=== PATIENT | female | born 1985 | race Caucasian/White ===

== ENCOUNTER 2018-07-24 20:46 | Emergency (ER) | payer MEDICAID ==
[~2018-07-24] VITALS: Ht 154.9 cm; Wt 68.8 kg
[2018-07-24 20:51] VITALS: Ht 154.9 cm; Wt 68.8 kg
[2018-07-24] MEDS ORDERED: SOD CHLORIDE 0.9% 1,000 ML IV STA (23:45)
[2018-07-24] MEDS ORDERED: KETOROLAC 15 MG INJ IV STA (23:45)
[2018-07-24] MEDS ORDERED: ASPIRIN 325 MG TAB PO STA (23:45)
--- NOTE | 2018-07-25 01:15 | ERD ---
ER Documentation Chief Complaint Chief Complaint CHEST PAIN XTANISH HPI 33-year-old female who presents to the emergency room complaining of 1 day of chest pain. She describes it as sharp, pressure-like but occasionally sharp and pinpoint to the left side of her chest with occasional radiation to the left arm. Nonexertional. Mild associated shortness of breath but no pleuritic pain. The patient is a non-smoker. No current control. No family history of early cardiac disease. She denies any fevers chills cough or congestion. The patient also notes 6 months of headache that is frontal. She has had CT imaging and MRI imaging that a been negative. Mild headache today that is gradual onset frontal and bitemporal. During the patient's encounter translation services were utilized Language: Croatian Source: In person ROS All systems reviewed and are negative except as per history of present illness. Medications Home Meds Active Scripts Ibuprofen* (Motrin*) 800 Mg Tab, 800 MG PO Q6H PRN for PAIN AND OR ELEVATED TEMP, #30 TAB Prov:GNEI TSAI MD 07/25/18 Reported Medications Ibuprofen* (Ibuprofen*) 200 Mg Capsule, 800 MG PO QID PRN for PAIN, CAP 07/25/18 Allergies Allergies: Coded Allergies: No Known Allergy (Unverified , 07/25/18) PMhx/Soc Medical and Surgical Hx: pt denies Medical Hx History of Surgery: Yes (c/s x4) Hx Alcohol Use: No Hx Substance Use: No Hx Tobacco Use: No Smoking Status: Never smoker FmHx Family History: No diabetes Physical Exam Vitals Vital Signs Date Temp Pulse Resp B/P (MAP) Pulse Ox O2 O2 Flow FiO2 Time Delivery Rate 07/25/18 99.2 67 11 113/66 100 Room Air 03:51 (82) 07/25/18 99.2 94 20 128/90 100 Room Air 02:57 (103) 07/25/18 99.2 70 12 129/81 100 Room Air 02:10 (97) 07/25/18 99.2 70 12 138/84 100 Room Air 01:28 (102) 07/25/18 99.2 82 19 142/90 100 Room Air 00:54 (107) 07/25/18 Nasal 2 00:15 Cannula 07/24/18 99.2 94 18 132/101 99 20:51 (111) Physical Exam General: Well developed, well nourished, no acute distress Head: Normocephalic, atraumatic. Eyes: Pupils equally reactive, EOM intact ENT: Moist mucous membranes Neck: Supple, no lymphadenopathy Respiratory: Lungs clear bilaterally, no distress Cardiovascular: RRR, no murmurs, rubs, or gallops Abdominal: Soft, non-tender, non-distended, no peritoneal signs : Deferred MSK: No edema, no unilateral swelling, 5/5 strength Neurologic: Alert and oriented, moving all extremities, normal speech, no focal weakness, no cerebellar signs Skin: No rash Psych: Normal mood Result Diagram: 07/24/180 07/24/182349 Results 24 hrs Laboratory Tests Test 07/24/18 23:50 07/24/18 23:59 07/25/18 03:00 White Blood Count 10.0 10^3/ul Red Blood Count 4.06 10^6/ul Hemoglobin 12.7 g/dl Hematocrit 37.7 % Mean Corpuscular Volume 92.9 fl Mean Corpuscular Hemoglobin 31.3 pg Mean Corpuscular 33.7 g/dl Hemoglobin Concent Red Cell Distribution Width 11.7 % Platelet Count 283 10^3/UL Mean Platelet Volume 11.6 fl Immature Granulocytes % 0.400 % Neutrophils % 47.6 % Lymphocytes % 35.8 % Monocytes % 14.7 % Eosinophils % 0.9 % Basophils % 0.6 % Nucleated Red Blood Cells % 0.0 /100WBC Immature Granulocytes # 0.040 10^3/ul Neutrophils # 4.8 10^3/ul Lymphocytes # 3.6 10^3/ul Monocytes # 1.5 10^3/ul Eosinophils # 0.1 10^3/ul Basophils # 0.1 10^3/ul Nucleated Red Blood Cells # 0.0 10^3/ul D-Dimer 248.33 ng/ml D-Dimer Comment Sodium Level 140 mmol/L Potassium Level 3.7 mmol/L Chloride Level 104 mmol/L Carbon Dioxide Level 24 mmol/L Anion Gap 12 Blood Urea Nitrogen 10 mg/dl Creatinine 0.73 mg/dl Est Glomerular Filtrat > 60 mL/min Rate mL/min Glucose Level 95 mg/dl Calcium Level 9.6 mg/dl Troponin I < 0.012 ng/ml < 0.012 ng/ml POC Beta HCG, Qualitative NEGATIVE Current Medications Medications Dose Sig/Roseline Start Time Status Last (Trade) Ordered Route PRN Stop Time Admin Dose Reason Admin Sodium 1,000 ml @ Q1H STAT 07/24/18 DC 07/25/18 Chloride 1,000 mls/hr IV 23:45 00:05 07/25/18 00:44 Aspirin 325 mg ONCE STAT 07/24/18 DC 07/25/18 (Aspirin) PO 23:45 00:05 07/24/18 23:47 Ketorolac 15 mg ONCE STAT 07/24/18 DC 07/25/18 Tromethamine IV 23:45 00:05 (Toradol) 07/24/18 23:47 Procedures/MDM EKG, MONITORS, & DIAGNOSTIC IMAGING: EKG: I reviewed and interpreted a 12-lead EKG. Rhythm: Normal sinus rhythm ST Changes: No contiguous ST segment elevations T waves: No contiguous T wave inversions Impression: No evidence of acute cardiac ischemia Repeat EKG: EKG: I reviewed and interpreted a 12-lead EKG. Rhythm: Normal sinus rhythm ST Changes: No contiguous ST segment elevations T waves: No contiguous T wave inversions Impression: No evidence of acute cardiac ischemia Chest x-ray: I reviewed and interpreted a 1 view of the chest Mediastinum: No enlargement Cardiac silhouette: No cardiomegaly Airspace: Clear lung lan bilaterally without evidence of pneumothorax Bones: No evidence of fracture PROCEDURES: None LAB INTERPRETATION: Review the labs showing negative troponin and negative d-dimer MEDICAL DECISION MAKING: The patient's history, physical exam and clinical presentation is very nonspecific and unlikely related to serious etiology given the patient's age and limited risk profile. The patient would benefit from EKG and troponin. Low pretest probably for cardiac etiology. Low pretest probability for pulmonary embolism. The patient qualifies for wells low risk criteria. D-dimer appropriate. Based on the patient's clinical exam and history and risk factors, I have a much lower clinical concern for pulmonary embolism, acute aortic dissection, pneumothorax, pneumonia, cardiac tamponade HEART Pathway for Early Discharge in Acute Chest Pain [facility] [email or web address] on 07/25/2018 All calculations should be rechecked by clinician prior to use RESULT SUMMARY: 1 points HEART Pathway Score Low risk 0.91.7% 30-day MACE Repeat troponin at 3 hours and if negative, discharge home with outpatient follow-up. Shared Decision Making: We had a conversation regarding risk stratification, MACE rate, and the risks, benefits, alternatives of disposition planning options. Disposition planning: Outpatient management as documented above ER COURSE: * Nonsteroidal anti-inflammatory provided. Patient's pain is improved * Negative troponin x2. Pain is improved Observation Note: Indication: Chest pain Duration: Greater than 6 hours Family history: As noted above The patient was observed with serial exams over the above timeframe. The patient continued to be well-appearing, and observation continued without complication. CONSULTATION: None DISPOSITION PLAN: The patient does not have an identifiable emergent medical condition that warrants inpatient hospitalization at this time. The patient is deemed safe for discharge with outpatient follow-up. We discussed follow up with the patient's primary care doctor within 24 to 48 hours as needed. We also discussed return to the emergency room for worsening symptoms or worsening condition. Outpatient referral: None required Discharge Medications: Motrin Departure Diagnosis: Primary Impression: Chest pain Chest pain type: unspecified Qualified Codes: R07.9 - Chest pain, unspecified Condition: Stable GENI TSAI MD Jul 25, 2018 01:15
[2018-07-25] MEDS ORDERED: IBUP-1982 PO (02:59)
[2018-07-25 03:51] VITALS: BP 113/66; PULSE 67; RESP 11
[2018-07-25] MEDS ORDERED: IBUP800T48 PO (03:59)
== END 2018-07-25 03:58 | disposition home or self-care (01) ==
LOC: E/R 20:46
DX: R07.9 Chest pain, unspecified (principal)
CPT/HCPCS: 36415; 71045; 80048; 81025; 84484; 85025; 85378; 96374; J1885; J7030; Z7502; Z7610; 93005

== ENCOUNTER 2018-08-10 19:59 | Emergency (ER) | payer MEDICAID ==
[~2018-08-10] VITALS: Ht 165.1 cm; Wt 69.3 kg
[~2018-08-10 19:59] MED LIST: IBUP-1982 PO; IBUP800T48 PO
[2018-08-10 20:04] VITALS: Ht 165.1 cm; Wt 69.3 kg
[2018-08-10] MEDS ORDERED: CEFEPIME 2GM/50 ML (PMX) 50 ML IVPB STA (20:27)
[2018-08-10] MEDS ORDERED: SODIUM CHLORIDE 0.9% 1L BAG IV* STA (20:27)
[2018-08-10] MEDS ORDERED: VANCOMYCIN 1 GM (PMX) 250 ML IVPB ONE (20:30)
[2018-08-10] MEDS ORDERED: HYDROmorphONE 1 MG/ML SYG IV STA (20:50)
[2018-08-10] MEDS ORDERED: ONDANSETRON 4 MG INJ IV STA (20:50)
--- NOTE | 2018-08-10 21:38 | ERD ---
ER Documentation Chief Complaint Chief Complaint COUGH, NAUSEA AND MELTON X TODAY HPI This is a 33-year-old female who complains of fever, cough, headache, body aches, stuffy ears for 7 days. She says that her fever is coming and going. Denies any shortness of breath or chest pain or nausea vomiting diarrhea or dysuria. Says her sputum production is white. No sore throat ROS All systems reviewed and are negative except as per history of present illness. Medications Home Meds Active Scripts Ibuprofen* (Motrin*) 800 Mg Tab, 800 MG PO Q6H PRN for PAIN AND OR ELEVATED TEMP, #30 TAB Prov:GNEI TSAI MD 07/25/18 Reported Medications Ibuprofen* (Ibuprofen*) 200 Mg Capsule, 800 MG PO QID PRN for PAIN, CAP 07/25/18 Allergies Allergies: Coded Allergies: No Known Allergy (Unverified , 07/25/18) PMhx/Soc History of Surgery: Yes (c/s x4) Hx Alcohol Use: No Hx Substance Use: No Hx Tobacco Use: No Smoking Status: Never smoker FmHx Family History: No coronary disease Physical Exam Vitals Vital Signs Date Temp Pulse Resp B/P (MAP) Pulse Ox O2 O2 Flow FiO2 Time Delivery Rate 08/10/18 103.8 125 20 168/97 99 20:04 (120) Physical Exam Const: Well-developed, well-nourished, well-appearing Head: Atraumatic, normocephalic Eyes: Normal Conjunctiva, PERRLA, EOMI, normal sclera, no nystagmus ENT: Normal External Ears, Nose and Mouth, moist mucus membranes. Neck: Full range of motion. No meningismus, no lymphadenopathy. Resp: Clear to auscultation bilaterally, no wheezing, rhonchi, rales Cardio: Regular rate and rhythm, no murmurs, S1 S2 present Abd: Soft, non tender x 4, non distended. Normal bowel sounds, no guarding or rebound, no pulsitile abdominal masses or bruits Skin: No petechiae or rashes, no ecchymosis , no maculopapular rash Back: No midline or flank tenderness Ext: No cyanosis, or edema, FROM x 4, normal inspection, neurovascularly intact x 4 Neur: Awake and alert, STR 5/5 x 4, sensation intact x 4, no focal findings, cerebellum intact Psych: Normal Mood and Affect Result Diagram: 08/10/18203108/10/182031 Results 24 hrs Laboratory Tests Test 08/10/18 20:20 08/10/18 20:25 08/10/18 20:31 08/10/18 20:32 Urine Color STRAW Urine Clarity CLEAR Urine pH 8.0 Urine Specific 1.009 [place] Urine Ketones NEGATIVE mg/dL Urine Nitrite NEGATIVE mg/dL Urine Bilirubin NEGATIVE mg/dL Urine NEGATIVE mg/dL Urobilinogen Urine Leukocyte NEGATIVE Brisa/ul Esterase Urine Microscopic 13 /HPF RBC Urine Microscopic 1 /HPF WBC Urine Squamous FEW /HPF Epithelial Cells Urine Bacteria FEW /HPF Urine Hemoglobin 2+ mg/dL Urine Glucose NEGATIVE mg/dL Urine Total NEGATIVE mg/dl Protein POC Beta HCG, NEGATIVE Qualitative POC Venous 1.9 mmol/L Lactate White Blood Count 13.0 10^3/ul Red Blood Count 4.14 10^6/ul Hemoglobin 12.8 g/dl Hematocrit 37.9 % Mean Corpuscular 91.5 fl Volume Mean Corpuscular 30.9 pg Hemoglobin Mean Corpuscular 33.8 g/dl Hemoglobin Concen t Red Cell 11.5 % Distribution Width Platelet Count 275 10^3/UL Mean Platelet 11.1 fl Volume Immature 0.300 % Granulocytes % Neutrophils % 80.9 % Lymphocytes % 8.3 % Monocytes % 9.6 % Eosinophils % 0.4 % Basophils % 0.5 % Nucleated Red 0.0 /100WBC Blood Cells % Immature 0.040 10^3/ul Granulocytes # Neutrophils # 10.5 10^3/ul Lymphocytes # 1.1 10^3/ul Monocytes # 1.3 10^3/ul Eosinophils # 0.1 10^3/ul Basophils # 0.1 10^3/ul Nucleated Red 0.0 10^3/ul Blood Cells # Sodium Level 142 mmol/L Potassium Level 4.1 mmol/L Chloride Level 102 mmol/L Carbon Dioxide 24 mmol/L Level Anion Gap 16 Blood Urea 8 mg/dl Nitrogen Creatinine 0.61 mg/dl Est Glomerular > 60 mL/min Filtrat Rate mL/min Glucose Level 118 mg/dl Calcium Level 9.5 mg/dl Total Bilirubin 0.3 mg/dl Direct Bilirubin 0.00 mg/dl Indirect 0.3 mg/dl Bilirubin Aspartate Amino 37 IU/L Transf (AST/SGOT) Alanine 19 IU/L Aminotransferase (ALT/SGPT) Alkaline 98 IU/L Phosphatase Troponin I < 0.012 ng/ml Total Protein 8.4 g/dl Albumin 4.7 g/dl Globulin 3.70 g/dl Albumin/Globulin 1.27 Ratio Current Medications Medications Dose Sig/Roseline Start Time Status Last (Trade) Ordered Route PRN Stop Time Admin Dose Reason Admin Sodium 2,080 ml BOLUS OVER 2 08/10/18 DC 08/10/18 Chloride HOURS STAT 20:27 20:40 (NS) IV* 08/10/18 20:28 Cefepime HCl 50 ml @ ONCE STAT 08/10/18 DC 08/10/18 100 mls/hr IVPB 20:27 20:40 08/10/18 20:56 Vancomycin 250 ml @ ONCE ONCE 08/10/18 08/10/18 HCl 125 mls/hr IVPB 20:30 20:54 08/10/18 22:29 1 mg ONCE STAT 08/10/18 DC Hydromorphone IV 20:50 HCl 08/10/18 20:51 (Dilaudid) Ondansetron 4 mg ONCE STAT 08/10/18 DC HCl (Zofran IV 20:50 Inj) 08/10/18 20:51 Procedures/MDM Ordering MD: CAMDEN MINAYA DO Location: E/R Room/Bed: PROCEDURE: XR Chest. CLINICAL INDICATION: chest pain TECHNIQUE: Single frontal view of the chest was obtained COMPARISON: 07/24/2018 FINDINGS: The heart and mediastinum are within normal limits. The lungs are clear. There is no pleural effusion or pneumothorax. RPTAT: AA IMPRESSION: No acute disease. .Surendra Quiroz MD, MD Date Time Electronically viewed and signed by .Surendra Quiroz MD, on 08/10/2018 20:39 .S/ CC: CAMDEN MINAYA DO [id number] The patient's flu swab is negative. Her lactic acid is 1.9. The patient likely has a viral illness/bronchitis I will treat accordingly. Patient is nontoxic and well-appearing. Discharge home with Z-Wei, prednisone and albuterol inhaler Departure Diagnosis: Primary Impression: Influenza-like symptoms Condition: Stable CAMDEN MINAYA DO Aug 10, 2018 21:38
[2018-08-10] MEDS ORDERED: ALBU8.5H8 INH (21:39)
[2018-08-10] MEDS ORDERED: PRED20TA PO (21:39)
[2018-08-10] MEDS ORDERED: AZIT250T PO (21:39)
[2018-08-10] MEDS ORDERED: IBUP800T48 PO (21:44)
[2018-08-10] MEDS ORDERED: IBUPROFEN 800 MG TAB PO ONE (22:00)
[2018-08-10] MEDS ORDERED: ACETAMINOPHEN 500 MG TAB PO STA (23:18)
[2018-08-11 01:30] VITALS: BP 133/74; PULSE 99; RESP 17
== END 2018-08-11 01:45 | disposition home or self-care (01) ==
LOC: E/R 19:59
DX: R05 Cough (principal); R11.0 Nausea; R51 Headache; R50.9 Fever, unspecified; R07.9 Chest pain, unspecified
CPT/HCPCS: 36415; 71045; 80053; 81001; 81025; 83605; 84484; 85025; 87040; 87086; 87400; 93005; 96374; 96375; J0692; J1170; J2405; J3370; J7030; Z7502; Z7610

== ENCOUNTER 2019-04-02 17:31 | Emergency (ER) | payer MEDICAID ==
[~2019-04-02] VITALS: Ht 154.9 cm; Wt 65.0 kg
[~2019-04-02 17:31] MED LIST changes: +ACET500C5 PO; +ALBU8.5H8 INH; +AZIT250T PO; +BUTA1CAP38 PO; +HYDR25TA6 PO; +IBUP-1542 PO; +ONDA4TAB14 PO; +PRED20TA PO
[2019-04-02 17:37] VITALS: BP 171/93; PULSE 73; RESP 20; Ht 154.9 cm; Wt 65.0 kg
== END 2019-04-02 17:42 | disposition home or self-care (01) ==
LOC: FTE 17:31 → E/R 17:42
DX: I10 Essential (primary) hypertension (principal)
CPT/HCPCS: 70450; Z7502

== ENCOUNTER 2019-04-10 17:00 | Emergency (ER) | payer MEDICAID ==
[~2019-04-10] VITALS: Ht 157.5 cm; Wt 68.0 kg
[2019-04-10 17:09] VITALS: BP 138/79; PULSE 64; RESP 18; Ht 157.5 cm; Wt 68.0 kg
[2019-04-10] MEDS ORDERED: KETOROLAC 30 MG INJ IM STA (17:15)
== END 2019-04-10 17:40 | disposition home or self-care (01) ==
LOC: E/R 17:00 → FTE 17:40
DX: M94.0 Chondrocostal junction syndrome [Tietze] (principal); I10 Essential (primary) hypertension
CPT/HCPCS: 81025; 96372; J1885; Z7502; 93005